=== PATIENT | male | born 1965 | race Caucasian/White ===

== ENCOUNTER 2024-09-05 13:53 | Emergency (ER) | payer OTHER, SELFPAY ==
[2024-09-05 14:00] VITALS: BP 166/97; PULSE 74; TEMP 36.6; O2SAT 98; BMI 37.8
[2024-09-05] MEDS: PREDNISONE 20 MG TABLET 40 MG PO (14:35)
[2024-09-05] MEDS: KETOROLAC TROMETHAMINE 30 MG/ML VIAL IM (14:35)
[2024-09-05] MEDS: ORPHENADRINE 60 MG/ 2 ML VIAL IM (14:36)
--- NOTE | 2024-09-05 15:28 | ED.BACK1 ---
HPI HPI - Back Pain/Injury General Chief Complaint: Back Pain/Injury Stated Complaint: HURT BACK Time Seen by Provider: 09/05/24 14:17 Source: patient Mode of arrival: walk-in Limitations: no limitations History of Present Illness HPI Narrative: The patient have a history of chronic back pain and spondylosis, he was taking gabapentin almost a year ago when it was stopped because he was feeling much better in the last few months since June the patient has been having more pain in the left side radiating down to the back of his left calf There was no other history of numbness tingling or any other concern there was no incontinence or any new symptoms that the patient is complaining of Patient had no history of trauma or fall Related Data Home Medications ?Medication ?Instructions ?Recorded ?Confirmed atorvastatin 20 mg tablet 20 mg PO DAILY 09/05/24 09/05/24 lisinopril 10 mg tablet 10 mg PO DAILY 09/05/24 09/05/24 Previous Rx's ?Medication ?Instructions ?Recorded diclofenac sodium 50 mg 50 mg PO Q12H PRN pain #14 tabs 09/05/24 tablet,delayed release gabapentin 300 mg capsule 300 mg PO TID #15 caps 09/05/24 orphenadrine citrate 100 mg 100 mg PO BID PRN muscle spasm #10 09/05/24 tablet,extended release tabs prednisone 20 mg tablet 40 mg (2 x 20 mg) PO DAILY 5 days 09/05/24 #10 tabs Allergies Allergy/AdvReac Type Severity Reaction Status Date / Time No Known Drug Allergies Allergy Verified 09/05/24 14:04 Opioid HPI Opioid Management Most Recent Opioid Data: No Data to Display Review of Systems ROS Status of ROS 10 or more systems reviewed and unremarkable except as noted in history and below PFSH PFSH Social History Little interest or pleasure in doing things: not at all Feeling down, depressed, or hopeless: not at all Exam Narrative Exam Narrative: Nurses notes and vital signs reviewed and patient is not hypoxic. General: Well-appearing and in no apparent distress. Skin: Warm, dry, no pallor noted. No rash. Head: Normocephalic, atraumatic. Neck: Supple, non-tender. Eye: Pupils are equal, round and EOMI. No scleral icterus. Ears, Nose, Mouth, and Throat: TM are clear, no nasal mucosal hypertrophy. Oral mucosa is moist, no posterior oropharynx erythema, uvula is mid-line Cardiovascular: Regular Rate and Rhythm without murmur, gallop or rub. Respiratory: No accessory muscle use or respiratory distress. Lungs are clear to auscultation, no wheezing, rales or rhonchi Chest Wall: no tenderness Back: The patient have a lower sacral tenderness with left paraspinal muscle tenderness but there is no tenderness to the lumbar level Musculoskeletal: normal ROM, no calf or popliteal tenderness, no lower extremity edema/swelling GI: Abdomen is soft, non-distended. Normal bowel sounds. No masses appreciated. No tenderness to palpation. No rebound, guarding, or rigidity noted. Neurological: A&O x4. No cranial nerve dysfunction observed. No truncal ataxia. Moves all extremities. Sensation intact. Psychiatric: Cooperative and interactive. Normal mood and affect. Constitutional Vital Signs, click to edit/add: Last Vital Signs Temp 98 F 09/05/24 14:00 Pulse 74 09/05/24 14:00 Resp 18 09/05/24 14:00 BP 166/97 H 09/05/24 14:00 Pulse Ox 98 09/05/24 14:00 O2 Del Method Room Air 09/05/24 14:00 Course Vital Signs Vital signs: Vital Signs Temperature 98 F 09/05/24 14:00 Pulse Rate 74 09/05/24 14:00 Respiratory Rate 18 09/05/24 14:00 Blood Pressure 166/97 H 09/05/24 14:00 Pulse Oximetry 98 09/05/24 14:00 Oxygen Delivery Method Room Air 09/05/24 14:00 Temperature 98 F 09/05/24 14:00 Pulse Rate 74 09/05/24 14:00 Respiratory Rate 18 09/05/24 14:00 Blood Pressure 166/97 H 09/05/24 14:00 Pulse Oximetry 98 09/05/24 14:00 Oxygen Delivery Method Room Air 09/05/24 14:00 MDM - Back Pain/Injury MDM Narrative Medical decision making narrative: Patient presented to us with a history of chronic back pain with exacerbation over the last few weeks. No alarming symptoms at the moment and the patient was started on prednisone his gabapentin was restarted in addition to discharge home with Voltaren and Norflex patient was instructed to follow-up with his primary care and neurosurgery he is to come back in case of any alarming symptoms The patient is to follow up with primary care physician in next 2-3 days or to return to the emergency department should any of the signs or symptoms worsen or new symptoms develop. The patient agrees with the following Diagnosis and Treatment plan and the patient will be discharged home. Discharge Plan Discharge Chief Complaint: Back Pain/Injury Clinical Impression: Sciatica Patient Disposition: Home, Self-Care Time of Disposition Decision: 14:32 Condition: Good Prescriptions / Home Meds: New prednisone 20 mg tablet 40 mg PO DAILY 5 Days Qty: 10 0RF orphenadrine citrate 100 mg tablet extended release 100 mg PO BID PRN (Reason: muscle spasm) Qty: 10 0RF gabapentin 300 mg capsule 300 mg PO TID Qty: 15 0RF diclofenac sodium 50 mg tablet,delayed release (DR/EC) 50 mg PO Q12H PRN (Reason: pain) Qty: 14 0RF No Action lisinopril 10 mg tablet 10 mg PO DAILY atorvastatin 20 mg tablet 20 mg PO DAILY Print Language: Marshallese Instructions: Sciatica (ED) Referrals: Physician,Non-Staff, MD [Primary Care Provider] - 1 week Discharge Date/Time: 09/05/24 14:45
== END 2024-09-05 14:45 | disposition home or self-care (01) ==
PROVIDERS: Emergency Provider Emergency Medicine; Family Provider Family Medicine
DX: M54.32 Sciatica, left side (principal)
CPT/HCPCS: 96372; 99284; J1885; J2360; J7512